=== PATIENT | male | born 2000 | race Caucasian/White ===

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

== ENCOUNTER 2020-10-27 22:47 | Emergency (ER) | payer OTHER ==
[~2020-10-27] VITALS: Ht 180.3 cm; Wt 71.8 kg
[~2020-10-27 22:47] MED LIST: INDO-16 PO; KEFL500C17 PO
--- NOTE | 2020-10-27 23:43 | REPVR ---
PROCEDURE INFORMATION: Exam: XR Left Shoulder Exam date and time: 10/27/2020 11:26 PM Age: 20 years old Clinical indication: Pain; Shoulder; Left; Additional info: Left shoulder pain S/P fall TECHNIQUE: Imaging protocol: XR Left shoulder. Views: 2 or more views. COMPARISON: No relevant prior studies available. FINDINGS: Bones/joints: Bony mineralization is normal for age. No evidence of acute humeral or glenoid fracture. Acute midshaft fracture of the left clavicle with 20 degree apex cephalad angulation No concerning osseous lesion. AC joint is aligned normally. Glenohumeral joint is aligned normally. Visualized upper ribs are unremarkable. Soft tissues: No abnormal soft tissue process. No concerning soft tissue calcifications. IMPRESSION: Acute midshaft clavicle fracture with 20 degree apex cephalad angulation. Electronically signed by: Saúl Edwards On 10/27/2020 23:43:25 PM
[2020-10-27] MEDS ORDERED: NORCO, ANEXSIA 5/325MG TABLET (HYDROcodone/ACETAMINOPHEN) PO ONE (23:45)
[2020-10-28] MEDS ORDERED: NORC1TAB7 PO (00:25)
[2020-10-28 00:38] VITALS: BP 147/80
== END 2020-10-28 00:39 | disposition home or self-care (01) ==
LOC: M ED 22:47
DX: S42.025A Nondisplaced fracture of shaft of left clavicle, initial encounter for closed fracture (principal); Y92.838 Other recreation area as the place of occurrence of the external cause; Y93.23 Activity, snow (alpine) (downhill) skiing, snowboarding, sledding, tobogganing and snow tubing; Z79.891 Long term (current) use of opiate analgesic; Y99.9 Unspecified external cause status

== ENCOUNTER → 2021-08-06 | Outpatient (CLI) | payer OTHER ==
[~2021-08-06] MED LIST changes: +NORC1TAB7 PO
--- NOTE | 2021-08-06 16:48 | REP ---
INDICATION: CONTUSION LT WRIST, R/O FX. COMPARISON: No recent comparison radiographs are available. TECHNIQUE: Axial, coronal, and sagittal imaging planes are utilized. T1 and T2 weighted scans are obtained with without fat saturation in the usual fashion. FINDINGS: There is a nondisplaced transversely oriented fracture through the body of the lunate extending dorsally. There is diffuse T2 hyperintense T1 hypointense marrow edema in the lunate bone. There is also a similar pattern of marrow edema across the navicular waist. There is no definite fracture line in the navicular waist in this could be contusion. No carpal subluxation or dislocation is seen. There is mild marrow edema in the greater multangular. Cortical and medullary bone signal intensity are otherwise normal. No tendon disruption is seen. The triangular fibrocartilage appears normal. Distal radius and ulna appear intact. IMPRESSION: Nondisplaced fracture through the lunate bone with contusion versus subtle fracture navicular waist. Marrow edema consistent with contusion is also seen in the greater multangular. No subluxation or dislocation seen. <Electronically signed by Fan Agrawal > 08/06/21 [id number]
== END ==
LOC: M PLARAD 15:16
PROVIDERS: ATTEND Physician Assistant Surgical
DX: S62.122D Displaced fracture of lunate [semilunar], left wrist, subsequent encounter for fracture with routine healing (principal); X58.XXXD Exposure to other specified factors, subsequent encounter